=== PATIENT | male | born 1960 | race Caucasian/White ===

== ENCOUNTER 2018-11-03 05:33 | Emergency (ER) | payer BC ==
--- NOTE | 2018-11-03 06:06 | ED ---
Upper Extremity Pain - HPI Summary HPI Summary: Patient is a 58-year-old male presenting to the ED with right shoulder pain. He states over the past year he has developed worsening right shoulder pain which has been intermittent and usually spontaneously resolves. However, he states after chopping wood yesterday, he develop worsening pain to the most superior and anterior portion of the shoulder which is nonradiating. He states this is the worst it has been. He denies any other pain or symptoms. He has never injured the shoulder in the past. He has not been taking NSAIDs as he has been taking aspirin 325 mg for an aortic repair 15 years ago. Pain is worse with movement, better with rest. Worse with abduction, better with abduction and internal rotation. - History of Current Complaint Chief Complaint: Char Stated Complaint: "R SHOULDER PAIN" PER PT Time Seen by Provider: 11/03/18 05:43 Hx Obtained From: Patient Onset/Duration: Started Hours Ago Timing: Constant Severity Initially: Moderate Severity Currently: Moderate Character: Aching Alleviating Factor(s): Nothing Associated Signs & Symptoms: Positive: Negative Related History: Dominant Hand Right - Risk Factors Non-Orthopedic Risk Factor: Negative DVT Risk Factors: Negative Septic Arthritis Risk Factor: Negative Compartment Syndrome Risk Factors: Pain - Allergies/Home Medications Allergies/Adverse Reactions: Allergies Allergy/AdvReac Type Severity Reaction Status Date / Time No Known Allergies Allergy Verified 08/22/13 12:14 PMH/Surg Hx/FS Hx/Imm Hx Previously Healthy: Yes - Immunization History Hx Pertussis Vaccination: No Immunizations Up to Date: Yes Infectious Disease History: No Infectious Disease History: Denies: Traveled Outside the [place] in Last 30 Days - Social History Occupation: Employed Full-time Lives: With Family Alcohol Use: None Hx Substance Use: No Substance Use Type: Reports: None Hx Tobacco Use: No Smoking Status (MU): Never Smoked Tobacco Review of Systems Negative: Fever, Chills, Fatigue, Skin Diaphoresis Negative: Palpitations, Chest Pain Negative: Shortness Of Breath, Cough Genitourinary: Negative Positive: no symptoms reported, see HPI Positive: Arthralgia, Myalgia Skin: Negative Neurological: Negative All Other Systems Reviewed And Are Negative: Yes Physical Exam Vital Signs On Initial Exam: Initial Vitals Temp Pulse Resp BP Pulse Ox 99.6 F 72 16 150/93 99 11/03/18 05:35 11/03/18 05:35 11/03/18 05:35 11/03/18 05:35 11/03/18 05:35 Diagnostics - Vital Signs Vital Signs Temp Pulse Resp BP Pulse Ox 11/03/18 05:35 99.6 F 72 16 150/93 99 - Laboratory Lab Statement: Any lab studies that have been ordered have been reviewed, and results considered in the medical decision making process. Course/Dx - Course Course Of Treatment: During his treatment the patient's evaluated for right shoulder injury/ RTC injury. On physical examination, active painful arc test, positive drop arm test as well as pain and weakness with external rotation. No pain with alexander betina. Discussed with the patient this is likely a rotator cuff injury/tear. I have offered an x-ray, however discussed this may likely not show evidence of a tear or the degree of tear. Patient would like to continue with x-ray despite this. He will also follow up with orthopedics next week for a further evaluation. X-ray obtained, this was read as normal by BETHEL Roman in the ED. Patient is given sling. Naproxen 500mg BID prescribed. Diff Dx include: calcific tendinitis, overuse injury, RTC injury, arthritis. - Diagnoses Differential Diagnosis/HQI/PQRI: Positive: Arthritis Provider Diagnoses: Right shoulder pain Discharge - Sign-Out/Discharge Documenting (check all that apply): Patient Departure Patient Received Moderate/Deep Sedation with Procedure: No - Discharge Plan Condition: Stable Disposition: HOME Prescriptions: Naproxen [Naproxen 500 mg tab] 500 mg PO BID #30 tablet Patient Education Materials: Rotator Cuff Injury (ED), Rotator Cuff Tendinitis (ED) Referrals: Pierce Juárez MD [Medical Doctor] - Oumar Chavez MD [Primary Care Provider] - Rahat Mcintyre MD [Medical Doctor] - Additional Instructions: You likely have a rotator cuff tear or tendinitis This discomfort tends to dissipate the less you use the arm (as this is related to overuse) and rest Anti-inflammatories and heat will be the most helpful for you Xray showed no acute findings - but you may need further imaging through orthopedic clinic if symptoms continue or worsen Sling for comfort Ice and heat to the area - 10 or 20min off and on for each You may continue to use balms/rubs - but do not use just prior to placing heat to the area Moist heat (anything that goes in the microwave) is a better option than electric heat Gentle shoulder exercises as tolerated after heat placement for 20 minutes will promote blood flow Follow up with orthopedics next week- call today to make an appt Naproxen 500mg twice daily x 3 days (for inflammation) - then only as needed for discomfort Do not take aspirin while taking this medication, however if you reduce the naproxen to once daily, please add back in an 81mg (baby aspirin) to your daily regimen - Billing Disposition and Condition Condition: STABLE Disposition: Home
[2018-11-03] MEDS ORDERED: Naproxen TAB* 250 MG PO ONE (06:26)
[2018-11-03 06:46] VITALS: BP 141/88
== END 2018-11-03 06:45 | disposition home or self-care (01) ==
LOC: ED 05:33
DX: M25.511 Pain in right shoulder (principal); M19.011 Primary osteoarthritis, right shoulder; Z79.82 Long term (current) use of aspirin
CPT/HCPCS: 99282; A9270-GY

== ENCOUNTER → 2019-04-05 08:08 | Day surgery (SDC) | payer BC ==
[~2019-04-05 08:08] MED LIST: Ascorbic Acid TAB* 500 MG PO SCH; Diazepam TAB(*) 5 MG ONE; Heparin 2 UNITS/ML IVPREMIX* 3,000 ML IV ONE; Heparin(*) 1000 UNIT/ML 10 ML VIAL CATH LAB IV ONE; Iohexol 350 (CONTRAST) 200 ML MDV IV ONE; Levothyroxine TAB* 75 MCG TAB PO SCH; Lidocaine 1% INJ* 10 MG/ML 30 ML SDV ONE; Metoprolol Succinate XL TAB* 25 MG PO SCH; Midazolam* 1 MG/ML 5 ML VIAL (5 MG) ONE; NON FORMULARY MED* (Multivitamin [Multivitamins] 1 CAP) PO SCH; NS 0.9% 1000 ML** 1,000 ML IV SCH; VERAPAMIL 2.5 MG/ML 2 ML VIAL ** 5 mg/2 ml ONE; [UNRECOGNIZED DRUG - REMARK] PO SCH; diPHENhydraMINE PO* 25 MG ONE; fentaNYL* 50 MCG/ML 2 ML VIAL (100 MCG VIAL) ONE; nitroGLYCERIN DRIP* 25,000 MCG/250 ML BTL ONE
[2019-04-05 13:17] VITALS: BP 102/59
--- NOTE | 2019-04-05 13:30 | CATH ---
"*[facility]* [place] [address] Main: [phone] [email or web address] Cardiac Catheterization Patient: Tacho Akbar : 1960 Study Date: 04/05/2019 Age: 58 Gender: M HR: Height: 69 in /175.3 cm BSA: 1.7 m^2 Weight: 132 lb /60 kg BMI: 19.5 kg/m^2 Diplomatic Interpreter: Jag Cooley MD Ordering Physician: Jag Cooley MD Referring Physician: Jag Cooley MD, Stefek Paul, --- - Left coronary angiography. - Right coronary angiography. - Left heart catheterization with angiography. Summary: 1. Left ventricle: Systolic function is at the lower limits of normal. The estimated ejection fraction is 45-50%, by visual assessment. 2. No significant coronary artery disease. 3. Low normal to vey mildly reduced global left ventricle systolic function with normal LVEDP. Recommendations: The patient will follow up with his primary reed man, Dr. Greenwood for on going evauation of mild left ventricle systolic dysfunction. History: Risk factors: Hypertension. Labs, prior tests, procedures, and surgery: Stress myocardial perfusion imaging. Abnormal. Blood tests: International normalized ratio (INR) of 0.92. Partial thromboplastin time (PTT) of 36.6 sec. Serum potassium (K) of 4.2 mEq/l. Serum sodium (Na) of 142 mEq/l. Serum creatinine (current admission) of 1 mg/dl. Blood urea nitrogen of 18 mg/dl. Glucose of 94 mg/dl. Platelet count of 170 th/ul. White blood cell count (WBC) of 0.01 th/ul. Red blood cell count (RBC) of 4730 th/ul. Hematocrit of 43 %. Hemoglobin (pre-procedure) of 14.7 g/dl. Study data: Study status: Cardiac cath: elective. Location: Catheterization laboratory. Consent: The risks, benefits, and alternatives to the procedure were explained to the patient and/or their healthcare risk control field representative and written informed consent was obtained. All available pre-procedure labs were reviewed. Height: 175.3 cm. 69 in. Weight: 60 kg. 132 lb. Body surface area: 1.7 m^2. Body mass index: 19.5 kg/m^2. Procedure: 1. Initial setup. The patient was brought to the laboratory. Surface ECG leads, blood pressure measurements, and pulse oximetric signals were monitored. A baseline seven lead ECG was recorded. A time out was observed per protocol. 2. Skin preparation. The planned puncture sites were prepped and draped in the usual sterile manner. 3. Local anesthesia. 1% lidocaine was administered. 4. Local anesthesia. 1% lidocaine (1 ml) was administered. 5. Supplemental oxygen. Oxygen, 2 L/min was administered throughout the procedure. 6. Right radial artery access. A 6F [place] Slender sheath was advanced into the vessel. 7. Selective left coronary angiography. A 5F TIG 4.0 catheter was advanced into the left coronary vessel ostium under fluoroscopic guidance. Contrast was injected. Images were obtained in multiple projections. 8. Selective right coronary angiography. A 5F TIG 4.0 catheter was advanced into the right coronary vessel ostium under fluoroscopic guidance. Contrast was injected. Images were obtained in multiple projections. 9. Left heart catheterization with angiography. A 5F PIG Short Radial catheter was advanced across the aortic valve to the left ventricle under fluoroscopic guidance. 28 ml of contrast was injected at 14 ml/s. 10. Right radial artery hemostasis. Vessel closure was achieved with a Regular Vasc Band device. Study completion: Minimal estimated blood loss. All catheters inserted during the procedure were removed. There were no apparent complications. Administered medications: Aspirin, 81mg, PO. VALIUM (Diazepam), 5mg, PO. BENADRYL (Diphenhydramine), 25mg, PO. (Radial) Nitroglycerin, 300mcg, intra-arterially. (Radial) Verapamil, 3mg, intra-arterially. (Radial) Heparin, 3,000units, intra-arterially. NaCl 0.9% , infusion , at a rate of 100 ml/hr. NaCl 0.9% , 200 ml , bolus. Contrast: Omnipaque 350 55 ml (total dose). Omnipaque 350 345 ml (wasted). Radiation: Fluoroscopy dose: 40.4 cGy. Discharge: The patient tolerated the procedure well and was discharged from the lab in stable condition. Findings Coronary arteries: The coronary circulation is right dominant. The left main bifurcates normally into the LAD and circumflex. The left anterior descending gives rise to 4 diagonals. The left circumflex gives rise to 4 obtuse marginals. The right coronary gives rise to the posterior descending artery, 3 RV marginals, and 1 posterolateral. Left main: Patent. No stenosis, LAD: Normal, no significant stenosis throughout the left anterior descending coronary system. Left circumflex: Patent, no significant stenosis throughout it's course. Right coronary: Normal, no significant stenosis throughout it's course .. Left ventricle: Systolic function is at the lower limits of normal. The estimated ejection fraction is 45-50%, by visual assessment. Hemodynamics: + + + |Stage description |Condition 1 - | + + + |LV pressure s/d, ed |130/1, 8, dP/yn=0662 mm Hg/s| + + + |Arterial pressure s/d (m)|134/65 (92) | + + + Prepared and electronically signed by Jag Cooley MD 04/05/2019 13:29"
== END | disposition home or self-care (01) ==
LOC: CHICATH 08:08
PROVIDERS: ATTEND Internal Medicine Cardiovascular Disease
DX: R94.39 Abnormal result of other cardiovascular function study (principal); R07.9 Chest pain, unspecified; I42.9 Cardiomyopathy, unspecified
CPT/HCPCS: 76937; 93005; 93458; A9270-GY; J1644; J2250; J3010